=== PATIENT | female | born 1985 | race Caucasian/White ===

== ENCOUNTER 2016-09-12 10:45 | Emergency (ER) | payer OTHER ==
[~2016-09-12] VITALS: Ht 165.1 cm; Wt 56.7 kg
[~2016-09-12 10:45] MED LIST: PRENATAL VITAMI1 T10 PO
[2016-09-12 10:52] VITALS: BP 129/76
--- NOTE | 2016-09-12 11:05 | NUR ---
Pt ambulated to bed 5.
--- NOTE | 2016-09-12 11:15 | NUR ---
30/F presents to ED for evaluation of right upper back pain for the past 1 week. Patient states the pain has been intermittent but got worse today and has been constant today. Patient c/o 8/10 pain, worse with changing position or movement. Pt states "I was at work and left work to come here. 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 Denies taking medication today. Patient also reports symptoms of a cough, sore throat and headache but states "It's not that bad." Denies SOB or chest pain. Patient is AOX4, ambulates with steady gait. VSS. Patient denies . She states "I am taking control and it makes me irregular but I am taking the pills regular."
--- NOTE | 2016-09-12 11:22 | NUR ---
Patient being evaluated by physician at bedside.
== END 2016-09-12 11:22 | disposition home or self-care (01) ==
LOC: MED 10:55
DX: S29.012A Strain of muscle and tendon of back wall of thorax, initial encounter (principal); G43.909 Migraine, unspecified, not intractable, without status migrainosus; Z90.49 Acquired absence of other specified parts of digestive tract; Z71.6 Tobacco abuse counseling; W19.XXXA Unspecified fall, initial encounter; Y93.89 Activity, other specified; Y92.89 Other specified places as the place of occurrence of the external cause; Y99.8 Other external cause status

== ENCOUNTER 2016-09-15 16:19 | Emergency (ER) | payer OTHER ==
[~2016-09-15] VITALS: Ht 165.1 cm; Wt 56.7 kg
[2016-09-15 16:26] VITALS: BP 150/90
--- NOTE | 2016-09-15 16:30 | NUR ---
Patient ambulated to bed 02.
--- NOTE | 2016-09-15 16:58 | NUR ---
PATIENT PRESENTS TO ED WITH PT PRESENTS TO ER W/C/O RIGHT SIDED RIB AND SHOULDER PAIN X1 WEEK. PT STATES SHE FELL AT HOME WHILE LIFTING BOXES 2 WEEKS AGO AND HAS HAD PAIN SINCE THAT TIME. PT ALSO STATES THE PAIN IS WORSE W/INSPIRATION.DENIES N/V/D; SKIN IS PINK/WARM/DRY; AAOX4 WITH EVEN AND STEADY GAIT; LUNGS CLEAR BL; HR EVEN AND REGULAR; PT DENIES ANY FEVER, CP, SOB, OR COUGH AT THIS TIME; PATIENT STATES PAIN OF 8/10 AT THIS TIME; VSS; PATIENT POSITIONED FOR COMFORT; HOB ELEVATED; BEDRAILS UP X2; BED DOWN. ER MD MADE AWARE OF PT STATUS.
[2016-09-15 17:30] VITALS: BP 120/78
--- NOTE | 2016-09-15 17:30 | NUR ---
Patient discharged with v/s stable. Written and verbal after care instructions given and explained. Patient alert, oriented and verbalized understanding of instructions. Ambulatory with . All questions addressed prior to discharge. ID band removed. Patient advised to follow up with PMD. Rx of TRAMADOL given. Patient educated on indication of medication including possible reaction and side effects. Opportunity to ask questions provided and answered.
== END 2016-09-15 17:30 | disposition home or self-care (01) ==
LOC: MED 16:24
DX: S20.211A Contusion of right front wall of thorax, initial encounter (principal); R03.0 Elevated blood-pressure reading, without diagnosis of hypertension; X58.XXXA Exposure to other specified factors, initial encounter; Y93.89 Activity, other specified; Y92.89 Other specified places as the place of occurrence of the external cause; Y99.8 Other external cause status

== ENCOUNTER 2016-12-11 11:59 | Emergency (ER) | payer OTHER ==
[~2016-12-11] VITALS: Ht 165.1 cm; Wt 61.2 kg
[~2016-12-11 11:59] MED LIST changes: +PREN-385 PO; -PRENATAL VITAMI1 T10 PO
[2016-12-11 12:25] VITALS: BP 121/74
--- NOTE | 2016-12-11 13:39 | NUR ---
PATIENT CALLED FROM [facility] NO ANSWER PATIENT IS LWBS.
== END 2016-12-11 13:39 | disposition left against medical advice (07) ==
LOC: MED 11:59
DX: O26.892 Other specified pregnancy related conditions, second trimester (principal); M54.5 Low back pain; Z53.21 Procedure and treatment not carried out due to patient leaving prior to being seen by health care provider

== ENCOUNTER 2017-05-02 09:17 | Inpatient (IN) | payer OTHER ==
[~2017-05-02] VITALS: Ht 165.1 cm; Wt 71.2 kg
[2017-05-02] MEDS ORDERED: CARBOPROST 250 MCG/ML AMP IM PRN (09:45)
[2017-05-02] MEDS ORDERED: METHYLERGONOVINE 0.2 MG/ML AMP IM PRN ×2 (09:45→19:25)
[2017-05-02] MEDS ORDERED: OXYTOCIN 10 UNITS/ML VIAL IM PRN ×2 (09:55→19:25)
[2017-05-02] MEDS ORDERED: OXYTOCIN 10 UNITS/ML VIAL IM ONE ×2 (09:55→19:45)
[2017-05-02] MEDS ORDERED: MISOPROSTOL 25 MCG TAB VG PRN (10:00)
[2017-05-02] MEDS ORDERED: OXYTOCIN 10 UNITS/ML VIAL IM SCH (10:05)
[2017-05-02] MEDS ORDERED: OXYTOCIN 20 UNITS in LACTATED RINGERS 1,000 ML IV SCH (10:05)
[2017-05-02] MEDS: LACTATED RINGERS 1,000 ML IV SCH ×2 (10:22→18:08)
[2017-05-02 10:33] VITALS: BP 119/80
[2017-05-02 10:35] LABS: BASOPHILS # (AUTO) 0.1 K/uL (0.00-0.22); BASOPHILS % (AUTO) 1.5 % (0.0-2.0); EOSINOPHILS # (AUTO) 0.1 K/uL (0-0.4); EOSINOPHILS % (AUTO) 0.7 % (0.0-4.0); HEMATOCRIT 38.7 % (36-48); HEMOGLOBIN 12.6 g/dL (12.0-16.0); LYMPHOCYTES # (AUTO) 3.4 K/uL (2.5-16.5); LYMPHOCYTES % (AUTO) 36.1 % (20.5-51.1); MEAN CORPUSCULAR HEMOGLOBIN 29 pg (27-31); MEAN CORPUSCULAR HGB CONC 33 g/dL (33-37); MEAN CORPUSCULAR VOLUME 87 fL (80-94); MONOCYTES # (AUTO) 0.6 K/uL (0.8-1.0); MONOCYTES % (AUTO) 5.9 % (1.7-9.3); NEUTROPHILS # (AUTO) 5.3 K/uL (1.8-7.7); NEUTROPHILS % (AUTO) 55.8 % (42.2-75.2); PLATELET COUNT (AUTO) 280 K/uL (140-450); RED BLOOD CELL COUNT(AUTO) 4.43 MIL/uL (4.20-5.40); RED CELL DISTRIBUTION WIDTH 14.4 % (11.6-13.7); WHITE BLOOD COUNT (AUTO) 9.5 K/uL (4.8-10.8)
[2017-05-02 10:46] LABS: ANION GAP 13.5 (8-16); CARBON DIOXIDE 26.6 mmol/L (21-32); CREATININE 0.6 mg/dL (0.6-1.3); POTASSIUM 4.1 mmol/L (3.5-5.1)
[2017-05-02 10:52] LABS: ALBUMIN 2.1 g/dL (3.4-5.0); TOTAL BILIRUBIN 0.3 mg/dL (0.0-1.0)
[2017-05-02 10:56] LABS: BILIRUBIN,URINE NEGATIVE (NEGATIVE); BLOOD, URINE NEGATIVE (NEGATIVE); COLOR,URINE YELLOW (YELLOW); LEUKOCYTE ESTERASE ,URINE NEGATIVE (NEGATIVE); NITRITE, URINE NEGATIVE (NEGATIVE); PH,URINE 6.5 (5.0-9.0); UGLUCOSE NEGATIVE (NEGATIVE)
[2017-05-02 10:58] LABS: APPEARANCE,URINE HAZY (CLEAR)
[2017-05-02] MEDS ORDERED: MISOPROSTOL 25 MCG TAB ONE (11:15)
[2017-05-02] MEDS ORDERED: MISOPROSTOL 25 MCG TAB PO SCH (12:00)
[2017-05-02] MEDS ORDERED: OXYTOCIN 10 UNITS/ML VIAL ONE (17:11)
[2017-05-02] MEDS ORDERED: oxyCODONE/APAP 5/325 MG 1 TAB TAB PO PRN (19:25)
[2017-05-02] MEDS ORDERED: TEMAZEPAM 15 MG CAP PO PRN (19:25)
[2017-05-02] MEDS ORDERED: MEASLES, MUMPS, AND RUBELLA 1 VIAL SQVAC PRN (19:25)
[2017-05-02] MEDS ORDERED: BENZOCAINE/MENTHOL 20%-0.5% 60 GM CAN TP PRN (19:25)
[2017-05-02] MEDS: HYDROcodone/APAP 5/325 MG 1 TAB TAB PO PRN (19:48)
[2017-05-02] MEDS ORDERED: HYDROcodone/APAP 5/325 MG 1 TAB TAB ONE (19:54)
[2017-05-02] MEDS ORDERED: DOCUSATE SOD/SENNA 50/8.6 MG 1 TAB PO SCH (21:00)
[2017-05-03] MEDS: HYDROcodone/APAP 5/325 MG 1 TAB TAB PO PRN ×4 (00:03→20:45)
[2017-05-03] MEDS ORDERED: INFLUENZA VIRUS VACCINE QUAD 0.5 ML SYR IMVAC SCH (03:10)
[2017-05-03 07:33] LABS: HEMATOCRIT 38.8 % (36-48); HEMOGLOBIN 12.7 g/dL (12.0-16.0)
--- NOTE | 2017-05-03 08:55 | NUR ---
PATIENT HAS BEEN SCREENED AND CATEGORIZED LOW NUTRITION RISK. PATIENT WILL BE SEEN WITHIN 7 DAYS OF ADMISSION. 05/09/17 SUNSHINE CARY MBA, RD
[2017-05-03] MEDS: IBUPROFEN 800 MG TAB PO PRN (13:41)
[2017-05-04] MEDS: HYDROcodone/APAP 5/325 MG 1 TAB TAB PO PRN (02:59)
[2017-05-04] MEDS: IBUPROFEN 800 MG TAB PO PRN (08:10)
== END 2017-05-04 10:45 | disposition home or self-care (01) | DRG 560 ==
LOC: MLD 09:17 → MFCC 21:45
PROVIDERS: ADMIT Obstetrics & Gynecology; ATTEND Obstetrics & Gynecology
PROC: 10E0XZZ Delivery of Products of Conception, External Approach (ICD-10-PCS; principal; 2017-05-02)
PROC: 3E0P7GC Introduction of Other Therapeutic Substance into Female Reproductive, Via Natural or Artificial Opening (ICD-10-PCS; 2017-05-02)
PROC: 3E0234Z Introduction of Serum, Toxoid and Vaccine into Muscle, Percutaneous Approach (ICD-10-PCS; 2017-05-03)
DX: O77.0 Labor and delivery complicated by meconium in amniotic fluid (principal); O89.4 Spinal and epidural anesthesia-induced headache during the puerperium; Z23 Encounter for immunization; Z37.0 Single live birth; Z3A.39 39 weeks gestation of pregnancy; Z83.3 Family history of diabetes mellitus; Z90.49 Acquired absence of other specified parts of digestive tract
CPT/HCPCS: 36415; 51702; 59409; 80053; 81003; 85018; 85025; 86592; 86886; 86900; 86901; 90715; J2590; J7120

== ENCOUNTER 2017-06-16 05:48 | Day surgery (SDC) | payer OTHER ==
[~2017-06-16] VITALS: Ht 165.1 cm; Wt 65.8 kg
[2017-06-16] MEDS ORDERED: MORPHINE SULFATE 4 MG/ML SYR ONE ×3 (07:41→08:42)
[2017-06-16] MEDS ORDERED: MIDAZOLAM 2 MG/2 ML VIAL ONE (07:41)
[2017-06-16] MEDS ORDERED: fentaNYL 0.05 MG/ML VIAL ONE (07:41)
[2017-06-16] MEDS ORDERED: IBUPROFEN 800 MG TAB PO PRN (07:45)
[2017-06-16] MEDS ORDERED: ACETAMINOPHEN/CODEINE 300/30MG 1 TAB PO PRN (07:45)
[2017-06-16] MEDS ORDERED: ONDANSETRON 4 MG/2 ML VIAL IVP PRN (07:45)
[2017-06-16] MEDS ORDERED: MORPHINE SULFATE 4 MG/ML SYR IM/IVP PRN (07:45)
[2017-06-16] MEDS ORDERED: BUPIVACAINE-MPF 0.25% 30 ML VIAL INJ ONE (07:46)
[2017-06-16] MEDS: MORPHINE SULFATE 4 MG/ML SYR IVP PRN ×2 (08:15→08:30)
[2017-06-16] MEDS ORDERED: MIDAZOLAM 2 MG/2 ML VIAL IV ONE (08:20)
[2017-06-16] MEDS ORDERED: METOCLOPRAMIDE 10 MG/2 ML INJ VIAL IVP PRN (08:20)
[2017-06-16] MEDS ORDERED: MORPHINE SULFATE 4 MG/ML SYR IVP PRN (08:20)
[2017-06-16] MEDS ORDERED: MORPHINE SULFATE 2 MG/ML SYR IVP PRN (08:20)
[2017-06-16] MEDS ORDERED: METOCLOPRAMIDE 10 MG/2 ML INJ VIAL ONE (08:45)
[2017-06-16] MEDS ORDERED: ACETAMINOPHEN/CODEINE 300/30MG 1 TAB PO ONE (09:37)
== END 2017-06-16 10:20 | disposition home or self-care (01) ==
LOC: MDS 05:48 → MMU 05:56 → MDS 10:20
PROVIDERS: ATTEND Obstetrics & Gynecology
DX: Z30.2 Encounter for sterilization (principal); Z64.1 Problems related to multiparity; Z90.49 Acquired absence of other specified parts of digestive tract; Z91.09 Other allergy status, other than to drugs and biological substances
CPT/HCPCS: 58600; J0690; J2250; J2270; J2765; J3010; J3490; J7060; J7120

== ENCOUNTER 2019-01-18 18:03 | Emergency (ER) | payer OTHER ==
[~2019-01-18] VITALS: Ht 162.6 cm; Wt 80.3 kg
[2019-01-18 18:06] VITALS: BP 134/93
--- NOTE | 2019-01-18 18:21 | NUR ---
33 Y FEMALE BIB SELF C/O LOWER BACK PAIN X 3 DAYS. PT DENIES TRAUMA OR INJURY. NO REDNESS, BRUISING, OR DEFORMITY. CONSTANT NON-RADIATING RIPPING PAIN AT 10/10, PT TX WITH IBUPROFEN WITH NO RELIEF. LAST BM YESTERDAY, NORMAL. DENIES DYSURIA. VSS AT THIS TIME. PT AA0X4. BED IS DOWN, LOCKED, BED RAIL X 1, ERMD TO SEE PT. MEDHX:DENIES RX:IBUPROFEN
--- NOTE | 2019-01-18 18:23 | NUR ---
SANJUANITA BRAND AT BEDSIDE
[2019-01-18] MEDS ORDERED: KETOROLAC 60 MG/2 ML VIAL IM ONE (18:30)
[2019-01-18] MEDS ORDERED: DIAZEPAM 5 MG TAB PO ONE (18:30)
--- NOTE | 2019-01-18 19:05 | NUR ---
REPORT GIVEN TO FER SCANLON
--- NOTE | 2019-01-18 19:06 | NUR ---
ASSUMED CARE OF PT FROM CAPO VELEZ.
[2019-01-18 19:45] VITALS: BP 117/83
--- NOTE | 2019-01-18 19:45 | NUR ---
Patient discharged with v/s stable. Written and verbal after care instructions given and explained. Patient alert, oriented and verbalized understanding of instructions. Ambulatory with steady gait. All questions addressed prior to discharge. ID band removed. Patient advised to follow up with PMD. Rx of TYLENOL AND IBUPROFEN given. Patient educated on indication of medication including possible reaction and side effects. Opportunity to ask questions provided and answered.
== END 2019-01-18 19:45 | disposition home or self-care (01) ==
LOC: MED 18:03
DX: S39.012A Strain of muscle, fascia and tendon of lower back, initial encounter (principal); Z79.899 Other long term (current) drug therapy; X58.XXXA Exposure to other specified factors, initial encounter; Y93.89 Activity, other specified; Y92.89 Other specified places as the place of occurrence of the external cause; Y99.8 Other external cause status
CPT/HCPCS: 81002; 81025; 96372; 99283; J1885